=== PATIENT | male | born 1975 | race Two or more races ===

== ENCOUNTER 2021-10-12 16:26 | Emergency (ER) | payer OTHER ==
[~2021-10-12] VITALS: Ht 170.2 cm; Wt 81.6 kg
== END 2021-10-12 20:53 | disposition home or self-care (01) ==
LOC: ER 16:26
DX: M85.612 Other cyst of bone, left shoulder (principal); S49.92XA Unspecified injury of left shoulder and upper arm, initial encounter; W22.8XXA Striking against or struck by other objects, initial encounter; Y92.89 Other specified places as the place of occurrence of the external cause